=== PATIENT | male | born 1990 | race Caucasian/White ===

== ENCOUNTER 2018-08-01 03:33 | Emergency (ER) | payer OTHER ==
[2018-08-01] MEDS ORDERED: ACETAMINOPHEN 325 MG TAB PO ONE (03:48)
[2018-08-01] MEDS ORDERED: IBUPROFEN 600 MG TAB PO ONE (03:48)
--- NOTE | 2018-08-01 04:49 | EDPHY ---
H & P Stated Complaint: THROAT PAIN SINCE WEDNESDAY SWOLLEN Time Seen by Provider: 08/01/18 04:49 HPI/ROS: Chief Complaint: Trouble breathing HPI: Patient is a 27-year-old male who is had a sore throat, fever, myalgias for the last couple of days however it has been coming and going. Tonight though he comes in because he developed difficulty breathing when he laid down flat he felt like he could get air through due to the swelling in his throat. He called in [facility] who recommended he go to the ER because he was having emergency due to having difficulty breathing. Patient states he feels a little bit better right now. His difficulty breathing is worse with exertion. He also has a sore throat which is worth worse with swallowing. He also has had some mild nausea and upset stomach from taking all the medications. Patient denies any runny nose. PMH: None Social History: Lives in [place], is moving here ROS: Neuro: Positive headache Constitutional: Positive Fever, No dizziness ENT: No runny nose, positive sore throat Cardiac: No Chest Pain Pulmonary: Positive Shortness of Breath GI: No abdominal Pain positive nausea Skin: No rash Heme: No easy bruising : No urinary problems Eyes: No vision problems Musculoskeletal: No neck pain, No back pain Complete Review of systems negative except as noted above Physical Exam: General: Alert in moderate distress from pain, but no respiratory respiratory distress Eyes: no icterus or pallor ENT: Mouth: Mucus membranes moist he has markedly enlarged bilateral tonsils with erythema of the tonsils along with pus on the tonsils. He also has erythema of the palate though there is no asymmetry and there is no signs of abscess. Neck: supple, no lymph nodes, no vertebral tenderness, no meningeal signs, no trismus and no sublingual swelling Lungs CTA bilaterally, no respiratory distress no stridor Cardiac: Normal pulses, normal rate, normal rhythm, normal heart sounds GI: Abd Soft, non tender, no distention Back: Normal inspection, nml ROM, No CVAT, no vertebral tenderness Extremities: No swelling, nml ROM Skin: Warm, pink and dry, Neuro: A&Ox3, MAEE, Nml Speech no hot potato voice ED Course Initial Eval: Pt greeted and advised about plan for care. Discussed given medications here however due to cost reasons he would rather take them once he gets to the pharmacy. Medical Decision Making Differential Diagnosis and MDM: 19-year-old male with severe sore throat with severe enlargement of both tonsils along with the palate. Differential diagnosis includes peritonsillar abscess, peritonsillar cellulitis, epiglottitis , parapharyngeal space abscess. The patient has such significant swelling along with pus that I think this is likely a bacterial infection. Will treat with antibiotics along with steroids to decrease swelling along with symptomatic control. He does not have any drooling, trismus or neck stiffness so I do not think that he requires an emergent procedure or admission to the hospital. - Personal History Current Tetanus/Diphtheria Vaccine: Yes Current Tetanus Diphtheria and Acellular Pertussis (TDAP): Yes - Medical/Surgical History Hx Asthma: No Hx Chronic Respiratory Disease: No Hx Diabetes: No Hx Cardiac Disease: No Hx Renal Disease: No Hx Cirrhosis: No Hx Alcoholism: No Hx HIV/AIDS: No Hx Splenectomy or Spleen Trauma: No - Social History Smoking Status: Current every day smoker Constitutional: Initial Vital Signs Temperature (C) 37.4 C 08/01/18 03:37 Heart Rate 89 08/01/18 03:37 Respiratory Rate 18 08/01/18 03:37 Blood Pressure 129/71 H 08/01/18 03:37 O2 Sat (%) 96 08/01/18 03:37 O2 Delivery Mode Room Air Allergies/Adverse Reactions: No Known Allergies Allergy (Unverified 08/01/18 03:41) Home Medications: Medication Instructions Recorded Azithromycin [Zithromax] 250 mg PO DAILY #6 tab 08/01/18 Dexamethasone [Decadron 4 MG (*)] 4 mg PO DAILY 1 Days #2 tab 08/01/18 Medical Decision Making - Data Points Laboratory Results: 08/01/18 08/01/18 Unknown 03:45 Group A Strep Screen NEGATIVE (NEGATIVE) Group A Strep DNA Pending Medications Given: Discontinued Medications Acetaminophen (Tylenol) 650 mg PO EDNOW ONE Stop: 08/01/18 03:49 Last Admin: 08/01/18 03:51 Dose: 650 mg Ibuprofen (Motrin) 600 mg PO EDNOW ONE Stop: 08/01/18 03:49 Last Admin: 08/01/18 03:52 Dose: 600 mg Departure - Departure Disposition: Home, Routine, Self-Care Clinical Impression: Acute pharyngitis, Peritonsillar cellulitis Condition: Fair Instructions: Tonsillitis (ED) Additional Instructions: Use 1 tsp of liquid Benadryl every 4 hr gargle and swallow as needed for sore throat. Return immediately if worsening shortness of breath, drooling, unable open mouth or turn head Referrals: NONE *PRIMARY CARE P,. [Primary Care Provider] - As per Instructions Prescriptions: Azithromycin [Zithromax] 250 mg PO DAILY #6 tab Dexamethasone [Decadron 4 MG (*)] 4 mg PO DAILY 1 Days #2 tab
[2018-08-01 05:18] VITALS: BP 124/57
== END 2018-08-01 05:23 | disposition home or self-care (01) ==
DX: J20.9 Acute bronchitis, unspecified (principal); J36 Peritonsillar abscess; F17.200 Nicotine dependence, unspecified, uncomplicated